=== PATIENT | female | born 1990 | race Caucasian/White ===

== ENCOUNTER 2016-07-08 23:44 | Emergency (ER) | payer OTHER ==
[2016-07-09 00:32] LABS: BACTERIA, URINE OCC /hpf; BLOOD, URINE NEG (NEG); COMMENT (UR) CULT NOT INDICATED; CULTURE IF INDICATED CULT NOT INDICATED; GLUCOSE,URINE NEG (NEG); KETONE, URINE NEG (NEG); MUCUS URINE FEW /lpf (OCC); NITRITE,URINE NEG (NEG); PH, URINE 5.5 (5.0-8.5); SQUAMOUS EPITHELIAL CELL URINE 1 /hpf (0-5); URINE COLOR LIGHT-YELLOW (YELLW/STRAW)
--- NOTE | 2016-07-09 00:39 | PD ---
HPI Chief Complaint lower abdominal cramping, dysuria Date Seen: Jul 09, 2016 Travel History International Travel<30 Days: No Contact w/Intl Traveler<30Days: No Known Affected Area: No History of Present Illness HPI Mrs. Gamboa is a 26 yo G[address] Cooley at 18 5/7 weeks (MELODY 12/05/2016) who presents with two day history of pain with urination, increased urinary frequency, and lower abdominal "cramping" and "spasming." Patient reports history of frequent UTIs since childhood, and is concerned that she has a current UTI. Patient denies having prior urinary tract ultrasonography. Patient also reports fatigue, but states that she has had this in . Patient denies fever/chills at home, but states that her current temperature is above its norm. Patient denies history of complications as . Patient had urine culture is part of labs approximately 2 weeks ago which was negative. Patient has past medical history of latent TB. No other symptoms reported. Para: 0 : 1 History Past Medical History Narrative Medical Latent tuberculosis (has been evaluated by infectious disease. PPD positive; granulomatous disease seen on CXR, Quantiferon positive) Prior frequent UTIs Obstetric History Obstetric History G1 Past Surgical History Surgical History: No Previous Surgery Family History Family History: Negative Social History Alcohol Use: No Tobacco Use: No Substance Abuse: No Allergies-Medications (Allergen,Severity, Reaction): Coded Allergies: Morphine (Verified Allergy, Severe, Hives, 07/09/16) Augmentin (Verified Allergy, Unknown, 07/09/16) Chlorhexidine (Verified Allergy, Unknown, 07/09/16) Comments Augmentin Morphine Review of Systems General / Constitutional: No: Fever (<100.3F) Eyes: No: Blurred Vision Cardiovascular: No: Chest Pain or Discomfort Respiratory: No: Short of Breath Gastrointestinal: Abdominal Pain, No: Nausea, Vomiting Genitourinary: Dysuria Skin: No Rash Physical Exam Narrative GENERAL: Well-nourished, well-developed patient. SKIN: Warm and dry. HEAD: Normocephalic and atraumatic. EYES: No scleral icterus. No injection or drainage. ENT: No nasal drainage noted. Mucous membranes pink. Airway patent. NECK: Supple, trachea midline. No JVD. CARDIOVASCULAR: Regular rate and rhythm without murmurs; normal rate RESPIRATORY: Breath sounds equal bilaterally. No accessory muscle use. EXTREMITIES: No cyanosis or edema. No calf tenderness NEUROLOGICAL: Awake and alert. Motor and sensory function grossly within normal limits. Back: No costovertebral angle tenderness. ABDOMEN/GI: Abdomen soft. Midline suprapubic tenderness present, bowel sounds present, no rebound, no guarding Gravid Vaginal: Cervix: Closed, thick, high FHT's: Category: 1 Baseline: 150 Reactive: Y Variability: Mod Decels: None Data Data Vital Signs Reviewed: Yes Orders Urinalysis - C+S If Indicated (07/09/16 00:08) Vital Signs (Adult) .ON ADMISSION (07/09/16 00:22) ^ Labor Status (07/09/16 00:22) MDM Medical Record Reviewed: Yes Narrative Course / MDM 26 yo G[address] of [address]. Cooley at 18 5/7 weeks (MELODY 12/05/2016) Assessment: -Dysuria, cramping lower abdominal pain -History of frequent UTI's -FHT 150 bpm Plan: -Will obtain UA to assess for urinary tract infection. Interval history: Urinalysisleuk esterase moderate, WBC 3, occasional bacteria. Negative nitrates -Due to patient's dysuria in association with equivocal urinalysis results, we' ll empirically treat for UTI with single dose of Monurol -Patient to follow-up with Dr. Cooley routinely Diagnosis Diagnosis: Primary Impression: Urinary tract infection Additional Impression: Dysuria Disposition: 01 DISCHARGE HOME Condition: Stable Scripts Fosfomycin Packet (Monurol Packet)3 Gm Powderpack1 Pack PO ONCE #1 UNITS Prov:Tad Paige MD R2 07/09/16 Referrals: Benedict Cooley MD 1 week Patient Instructions: General Instructions, Urinary Tract Infection in (ED) Tad Paige MD R2 Jul 09, 2016 00:39
--- NOTE | 2016-07-09 00:58 | PD ---
History of Present Illness Date Seen: Jul 09, 2016 History of Present Illness This patient is 26-year-old white female at [address] Vega for care presents combining of UTI symptoms of dysuria bladder spasm. She denies severe abdominal pain bleeding or leakage of fluid. heart tones are 140s and her cervix is closed thick and high. Urinalysis showed very little actually occasional bacteria and only 1-2 WBCs and moderate leukocyte esterase but no nitrites or other overt signs for UTI plan to provide the patient a prescription for Monurol 3gm fosfomycin powder 3 g taken in water on one-time dosing. The urinalysis did not meet criteria for culture. Patient will follow up with Dr. Vega in the usual fashion or see him sooner for continuing or worsening symptoms Beka Arriaga II, MD Jul 09, 2016 00:58
[2016-07-09] MEDS ORDERED: MONUPAK PO (01:01)
== END 2016-07-09 03:57 | disposition home or self-care (01) ==
LOC: HOBED 23:44
DX: O23.42 Unspecified infection of urinary tract in pregnancy, second trimester (principal); R30.0 Dysuria; Z3A.18 18 weeks gestation of pregnancy
CPT/HCPCS: 81001; 99284

== ENCOUNTER 2016-09-17 16:01 | Emergency (ER) | payer OTHER ==
[2016-09-17] VITALS (11 sets, daily range): BP systolic 114–117; BP diastolic 65–73; PULSE 85–108; RESP 18; TEMP 98.1
[~2016-09-17 16:01] MED LIST: MONUPAK PO
--- NOTE | 2016-09-17 17:01 | PD ---
HPI Chief Complaint fainting spell Date Seen: September 17, 2016 Travel History International Travel<30 Days: No Contact w/Intl Traveler<30Days: No Known Affected Area: No History of Present Illness HPI This is a 26y/o at 28w5d who presents to the [facility] after a syncopal episode. Pt states she ate breakfast and was at [employer] when she felt warm/ flushed with chills and started to "blackout." She quickly sat in a chair, denies falling or other trauma. No h/o cardiac issues, adequate water intake. Pt denies vaginal bleeding or leakage of fluid with reports of active movements. Accucheck 102, bp's higher than they generally are in the office, per patient (see is an RN). Little caffeine intake, usually drinks 1 coke icee every few days. care with Dr. Cooley, records reviewed, care complicated by: 1. abnormal 1 hr glucose, 3 hr glucose pending Para: 0 : 1 History Past Medical History Narrative Medical H/o asthma as a child Past Surgical History Narrative Surgical h/o wisdom teeth extraction Family History Family History: Negative Social History Alcohol Use: No Tobacco Use: No Substance Abuse: No Allergies-Medications (Allergen,Severity, Reaction): Coded Allergies: Morphine (Verified Allergy, Severe, Hives, 07/09/16) Augmentin (Verified Allergy, Unknown, 07/09/16) Chlorhexidine (Verified Allergy, Unknown, 07/09/16) Home Meds Active Scripts Fosfomycin Packet (Monurol Packet)3 Gm Powderpack1 Pack PO ONCE #1 UNITS Prov:Tad Paige MD R2 07/09/16 Review of Systems Except as stated in HPI: all other systems reviewed are Neg Physical Exam Vital Signs Date Time Temp Pulse Resp B/P Pulse Ox O2 Delivery O2 Flow Rate FiO2 09/17/16 16:20 94 09/17/16 16:18 18 09/17/16 16:18 98.1 09/17/16 16:15 85 116/66 Narrative GENERAL: Well-nourished, well-developed patient. SKIN: Warm and dry. HEAD: Normocephalic and atraumatic. EYES: No scleral icterus. No injection or drainage. ENT: No nasal drainage noted. Mucous membranes pink. Airway patent. NECK: Supple, trachea midline. No JVD. CARDIOVASCULAR: Regular rate and rhythm without murmurs, gallops, or rubs. RESPIRATORY: Breath sounds equal bilaterally. No accessory muscle use. BREASTS: Bilateral exam showed no masses , no retractions, no nipple discharge. ABDOMEN/GI: Abdomen soft, non-tender, bowel sounds present, no rebound, no guarding Gravid to 27 weeks size GENITOURINARY: External Genitalia: intact and normal in appearance Cervix: deferred Uterine Contractions: none FHT's: Category: 1, appropriate for gestational age EXTREMITIES: No cyanosis or edema. BACK: Nontender without obvious deformity. No CVA tenderness. NEUROLOGICAL: Awake and alert. Motor and sensory grossly within normal limits. Five out of 5 muscle strength in all muscle groups. Normal speech. Data Data Vital Signs Reviewed: Yes Orders Serial Vitals: 1650 supine: BP114/65 P107 1654 sitting: BP 116/73 P104 1658 standing: BP 117/73 P107 Vital Signs (Adult) .ON ADMISSION (09/17/16 16:10) ^ Labor Status (09/17/16 16:10) Urinalysis - C+S If Indicated (09/17/16 16:10) Bedside Glucose SAKINA.AC&HS (09/17/16 16:10) ^ Non Stress Test (09/17/16 16:10) Labs Laboratory Tests Test 09/17/16 16:15 Urine Color YELLOW Urine Turbidity CLEAR Urine pH 7.5 Urine Specific Bruni 1.006 Urine Protein NEG mg/dL Urine Glucose (UA) NEG mg/dL Urine Ketones NEG mg/dL Urine Occult Blood NEG Urine Nitrite NEG Urine Bilirubin NEG Urine Urobilinogen LESS THAN 2.0 MG/DL Urine Leukocyte Esterase SMALL Urine WBC 2 /hpf Urine Squamous Epithelial 1 /hpf Cells Urine Bacteria RARE /hpf Urine Mucus FEW /lpf Microscopic Urinalysis Comment CULT NOT INDICATED MDM Medical Record Reviewed: No Interpretation(s) 26y/o at 28w5d with near syncopal episode. -orthostatic bps normal -no hypoglycemia -would consider holter monitor as outpatient -no evidence of PTL -reassuring status -u/a negative Plan -d/c home -f/u with Dr. Cooley on as scheduled Diagnosis Diagnosis: Primary Impression: Syncopal episodes Qualified Code: R55 - Vasovagal syncope Additional Impression: 28 weeks gestation of Disposition: 01 DISCHARGE HOME Condition: Good Patient Instructions: Near Syncope (ED) Amarilis Santos MD September 17, 2016 17:01
[2016-09-17 17:07] LABS: BACTERIA, URINE RARE /hpf; BLOOD, URINE NEG (NEG); COMMENT (UR) CULT NOT INDICATED; CULTURE IF INDICATED CULT NOT INDICATED; GLUCOSE,URINE NEG (NEG); KETONE, URINE NEG (NEG); MUCUS URINE FEW /lpf (OCC); NITRITE,URINE NEG (NEG); PH, URINE 7.5 (5.0-8.5); SQUAMOUS EPITHELIAL CELL URINE 1 /hpf (0-5); URINE COLOR YELLOW (YELLW/STRAW)
== END 2016-09-17 17:45 | disposition home or self-care (01) ==
LOC: HOBED 16:01
DX: O26.93 Pregnancy related conditions, unspecified, third trimester (principal); R55 Syncope and collapse; Z3A.28 28 weeks gestation of pregnancy
CPT/HCPCS: 81001; 99284